=== PATIENT | female | born 1960 | race Caucasian/White ===

== ENCOUNTER 2019-02-25 07:52 | Day surgery (SDC) | payer OTHER ==
[~2019-02-25] VITALS: Ht 162.6 cm; Wt 81.2 kg
[2019-02-25] MEDS ORDERED: LIDOCAINE 2% 100 MG/5 ML UJET TP ONE (10:12)
[2019-02-25] MEDS ORDERED: fentaNYL 0.05 MG/ML VIAL ONE (10:12)
[2019-02-25] MEDS ORDERED: fentaNYL 0.05 MG/ML VIAL IVP ONE (10:50)
== END 2019-02-25 11:28 | disposition home or self-care (01) ==
LOC: MDS 07:52 → MTU 07:53 → MDS 11:28
PROVIDERS: ATTEND Internal Medicine Gastroenterology
DX: Z12.11 Encounter for screening for malignant neoplasm of colon (principal); D12.3 Benign neoplasm of transverse colon
CPT/HCPCS: 45385; J3010